=== PATIENT | female | born 1980 | race African-American/Black ===

== ENCOUNTER 2017-12-02 21:31 | Emergency (ER) | payer MEDICAID ==
[~2017-12-02] VITALS: Ht 160 cm; Wt 60.0 kg
[2017-12-02] MEDS ORDERED: ONDANSETRON 4MG ODT PO STA (22:54)
[2017-12-02] MEDS ORDERED: MAGNESIUM/ALUMINUM HYDROXIDE/SIMETHICONE 30ML UDC PO STA (22:54)
[2017-12-02 23:23] LABS: BASOPHILS % 0.6 % (0.0-2.0); EOSINOPHILS % 0.9 % (0.0-5.0); HEMATOCRIT. 32.7 % (36.0-48.0); HEMOGLOBIN. 11.3 g/dL (12.0-16.0); MEAN CORPUSCULAR HEMOGLOBIN 34.2 pg (28.0-32.0); MEAN CORPUSCULAR VOLUME 99.1 fL (81.0-99.0); MEAN PLATELET VOLUME 11.4 fl (7.4-10.4); MONOCYTES % 9.4 % (2.0-8.0); NEUTROPHILS % 65.1 % (40.0-76.0); PLATELET 125 x1000/uL (130-400); RED CELL DISTRIBUTION WIDTH 15.5 % (11.6-14.6)
[2017-12-02 23:28] LABS: CHLORIDE 101 mEq/L (98-107); INR 1.2; PROTHROMBIN TIME 12.1 sec (9.4-11.6)
[2017-12-02] MEDS ORDERED: SODIUM CHLORIDE 0.9% 1,000 ML IV ONE (23:31)
[2017-12-02] MEDS ORDERED: KETOROLAC 30MG/ML VIAL IV STA (23:31)
[2017-12-02 23:33] LABS: HCG SCREEN NEGATIVE
[2017-12-02 23:37] LABS: CLARITY URINE CLOUDY (CLEAR); COLOR URINE YELLOW (YELLOW); KETONES URINE TRACE (NEGATIVE); LEUKOCYTE ESTERASE URINE NEGATIVE (NEGATIVE); NITRITE URINE NEGATIVE (NEGATIVE); OCCULT BLOOD URINE 1+ (NEGATIVE); PH URINE 5.5 (4.5-8.0); PROTEIN URINE 2+ (NEGATIVE); SPECIFIC GRAVITY URINE 1.025 (1.005-1.030)
[2017-12-03] MEDS ORDERED: POTASSIUM CHLORIDE 20MEQ TABLET SR PO ONE
[2017-12-03 01:49] VITALS: BP 160/70
== END 2017-12-03 02:00 | disposition home or self-care (01) ==
LOC: ER 21:56
DX: R10.9 Unspecified abdominal pain (principal); F17.200 Nicotine dependence, unspecified, uncomplicated
CPT/HCPCS: 36415; 80053; 81003; 84703; 85025; 85610; 96361; 96374; 99285; J1885; J7030; Q0162

== ENCOUNTER 2018-03-29 07:35 | Emergency (ER) | payer MEDICAID ==
[~2018-03-29] VITALS: Ht 167.6 cm; Wt 65.0 kg
[2018-03-29] MEDS ORDERED: ONDANSETRON HCL 4MG/2ML VIAL IV STA (09:03)
[2018-03-29] MEDS ORDERED: KETOROLAC 30MG/ML VIAL IV STA (09:03)
[2018-03-29] MEDS ORDERED: SODIUM CHLORIDE 0.9% 1,000 ML IV ONE (09:03)
[2018-03-29 09:46] LABS: BASOPHILS % 0.5 % (0.0-2.0); EOSINOPHILS % 5.1 % (0.0-5.0); HEMATOCRIT. 36.2 % (36.0-48.0); LYMPHOCYTES % 42.2 % (20.0-50.0); MEAN CORPUSCULAR HEMOGLOBIN 33.3 pg (28.0-32.0); MEAN CORPUSCULAR VOLUME 100.8 fL (81.0-99.0); MEAN PLATELET VOLUME 12.2 fl (7.4-10.4); MONOCYTES % 5.4 % (2.0-8.0); NEUTROPHILS % 46.8 % (40.0-76.0); PLATELET 120 x1000/uL (130-400); RED BLOOD CELL COUNT 3.59 mill/uL (4.2-5.4); RED CELL DISTRIBUTION WIDTH 16.6 % (11.6-14.6)
[2018-03-29 09:55] LABS: CHLORIDE 107 mEq/L (98-107)
[2018-03-29 10:04] LABS: CLARITY URINE CLEAR (CLEAR); COLOR URINE YELLOW (YELLOW); KETONES URINE NEGATIVE (NEGATIVE); LEUKOCYTE ESTERASE URINE NEGATIVE (NEGATIVE); NITRITE URINE NEGATIVE (NEGATIVE); OCCULT BLOOD URINE NEGATIVE (NEGATIVE); PROTEIN URINE NEGATIVE (NEGATIVE); SPECIFIC GRAVITY URINE 1.014 (1.005-1.030); UROBILINOGEN URINE 0.2 E.U./dL (0.2-1.0)
[2018-03-29 10:21] LABS: *BARBITURATES SCREEN URINE NEGATIVE (NEGATIVE)
[2018-03-29 10:22] LABS: *COCAINE SCREEN URINE NEGATIVE (NEGATIVE); METHADONE URINE SCREEN NEGATIVE (NEGATIVE)
[2018-03-29 10:25] LABS: *BENZODIAZEPINES SCREEN URINE NEGATIVE (NEGATIVE); PHENCYCLIDINE URINE SCREEN NEGATIVE (NEGATIVE)
[2018-03-29 10:26] LABS: OPIATES URINE SCREEN NEGATIVE (NEGATIVE)
[2018-03-29 10:28] LABS: *AMPHETAMINES SCREEN URINE NEGATIVE (NEGATIVE)
[2018-03-29 10:32] LABS: CANNABINOID URINE SCREEN PRESUMTIVE POSITIVE (NEGATIVE)
[2018-03-29] MEDS ORDERED: LORAZEPAM 2MG/ML CPJ IV ONE (10:45)
[2018-03-29] MEDS ORDERED: ONDANSETRON HCL 4MG/2ML VIAL IV ONE (11:00)
[2018-03-29 12:31] VITALS: BP 140/75
== END 2018-03-29 12:40 | disposition home or self-care (01) ==
LOC: ER 07:35
DX: R10.84 Generalized abdominal pain (principal); R11.2 Nausea with vomiting, unspecified; M79.7 Fibromyalgia; I10 Essential (primary) hypertension; F12.10 Cannabis abuse, uncomplicated; Z88.2 Allergy status to sulfonamides
CPT/HCPCS: 36415; 80053; 80305; 81003; 81025; 83690; 85025; 96361; 96374; 96375; 96376; 99285; J1885; J2060; J2405; J7030

== ENCOUNTER 2018-03-29 13:53 | Emergency (ER) | payer MEDICAID ==
[~2018-03-29] VITALS: Ht 157.5 cm; Wt 62.0 kg
[2018-03-29 14:24] VITALS: BP 163/85
== END 2018-03-29 20:30 | disposition left against medical advice (07) ==
LOC: ER 13:53
DX: R10.84 Generalized abdominal pain (principal)
CPT/HCPCS: 99281

== ENCOUNTER 2018-03-30 00:34 | Emergency (ER) | payer MEDICAID ==
[~2018-03-30] VITALS: Ht 167.6 cm; Wt 73.0 kg
[2018-03-30] MEDS ORDERED: SODIUM CHLORIDE 0.9% 1,000 ML IV ONE (01:47)
[2018-03-30] MEDS ORDERED: ONDANSETRON HCL 4MG/2ML INJ IV STA (01:47)
[2018-03-30] MEDS ORDERED: FAMOTIDINE 20MG/2ML VIAL IV STA (01:47)
[2018-03-30] MEDS ORDERED: MORPHINE SULFATE 4 MG/ML CPJ (NOT FOR IM USE) IV STA (01:47)
[2018-03-30] MEDS ORDERED: BACITRACIN ZINC 15GM TUBE TOP ONE (02:15)
[2018-03-30 02:30] LABS: BASOPHILS % 0.4 % (0.0-2.0); HEMATOCRIT. 34.1 % (36.0-48.0); HEMOGLOBIN. 11.6 g/dL (12.0-16.0); LYMPHOCYTES % 20.8 % (20.0-50.0); MEAN CORPUSCULAR VOLUME 100.2 fL (81.0-99.0); MEAN PLATELET VOLUME 11.9 fl (7.4-10.4); MONOCYTES % 5.9 % (2.0-8.0); NEUTROPHILS % 71.9 % (40.0-76.0); PLATELET 136 x1000/uL (130-400); RED BLOOD CELL COUNT 3.41 mill/uL (4.2-5.4); RED CELL DISTRIBUTION WIDTH 15.8 % (11.6-14.6)
[2018-03-30 02:36] LABS: CHLORIDE 102 mEq/L (98-107); HCG SCREEN NEGATIVE
[2018-03-30 02:37] LABS: INR 1.1; PROTHROMBIN TIME 11.3 sec (9.1-11.1)
[2018-03-30 03:44] LABS: CLARITY URINE CLEAR (CLEAR); COLOR URINE YELLOW (YELLOW); KETONES URINE 1+ (NEGATIVE); LEUKOCYTE ESTERASE URINE NEGATIVE (NEGATIVE); NITRITE URINE NEGATIVE (NEGATIVE); OCCULT BLOOD URINE NEGATIVE (NEGATIVE); PH URINE 5.5 (4.5-8.0); PROTEIN URINE 1+ (NEGATIVE); SPECIFIC GRAVITY URINE 1.024 (1.005-1.030)
[2018-03-30 04:30] VITALS: BP 144/86
== END 2018-03-30 04:31 | disposition home or self-care (01) ==
LOC: ER 00:34
DX: R10.9 Unspecified abdominal pain (principal); R11.2 Nausea with vomiting, unspecified; R00.1 Bradycardia, unspecified; I10 Essential (primary) hypertension; Z88.2 Allergy status to sulfonamides
CPT/HCPCS: 36415; 74176; 80053; 81003; 81025; 83690; 84703; 85025; 85610; 93005; 96361; 96374; 96375; 99285; J2270; J2405; J3490; J7030; Z7610

== ENCOUNTER 2018-05-02 23:35 | Emergency (ER) | payer MEDICAID ==
[~2018-05-02] VITALS: Ht 157.5 cm; Wt 54.5 kg
[2018-05-03] MEDS: ONDANSETRON HCL 4MG/2ML INJ IV STA (01:10)
[2018-05-03] MEDS: VISCOUS LIDOCAINE 2% 15 ML UDC PO STA (01:10)
[2018-05-03] MEDS: MAGNESIUM/ALUMINUM HYDROXIDE/SIMETHICONE 30ML UDC PO STA (01:10)
[2018-05-03] MEDS: SODIUM CHLORIDE 0.9% 1,000 ML IV ONE ×2 (01:10→03:05)
[2018-05-03 01:17] LABS: CHLORIDE 99 mEq/L (98-107)
[2018-05-03 01:19] LABS: BASOPHILS % 0.9 % (0.0-2.0); EOSINOPHILS % 1.1 % (0.0-5.0); HEMATOCRIT. 34.7 % (36.0-48.0); HEMOGLOBIN. 11.7 g/dL (12.0-16.0); MEAN CORPUSCULAR HEMOGLOBIN 34.3 pg (28.0-32.0); MEAN CORPUSCULAR VOLUME 101.8 fL (81.0-99.0); MEAN PLATELET VOLUME 11.8 fl (7.4-10.4); MONOCYTES % 5.9 % (2.0-8.0); NEUTROPHILS % 70.1 % (40.0-76.0); PLATELET 134 x1000/uL (130-400); RED BLOOD CELL COUNT 3.41 mill/uL (4.2-5.4); RED CELL DISTRIBUTION WIDTH 16.1 % (11.6-14.6)
[2018-05-03] MEDS: HYDROCODONE/ACETAMINOPHEN 5/325MG TABLET PO STA (03:05)
[2018-05-03 03:10] LABS: CLARITY URINE CLEAR (CLEAR); COLOR URINE YELLOW (YELLOW); KETONES URINE 1+ (NEGATIVE); LEUKOCYTE ESTERASE URINE NEGATIVE (NEGATIVE); NITRITE URINE NEGATIVE (NEGATIVE); OCCULT BLOOD URINE NEGATIVE (NEGATIVE); PROTEIN URINE 1+ (NEGATIVE)
[2018-05-03 04:55] VITALS: BP 118/84
== END 2018-05-03 05:12 | disposition home or self-care (01) ==
LOC: ER 23:35
DX: R10.9 Unspecified abdominal pain (principal); R11.2 Nausea with vomiting, unspecified; R19.7 Diarrhea, unspecified
CPT/HCPCS: 36415; 80053; 81003; 83690; 85025; 96361; 96374; 99285; J2405; J7030

== ENCOUNTER 2019-03-30 19:53 | Emergency (ER) | payer MEDICARE, MEDICAID ==
[~2019-03-30] VITALS: Ht 165.1 cm; Wt 59.0 kg
[2019-03-30] MEDS ORDERED: KETOROLAC 30MG/ML VIAL IV STA (20:30)
[2019-03-30] MEDS ORDERED: MORPHINE SULFATE 4 MG/ML CPJ (NOT FOR IM USE) IV STA (20:31)
[2019-03-30] MEDS ORDERED: SODIUM CHLORIDE 0.9% 1,000 ML IV ONE (20:31)
[2019-03-30] MEDS ORDERED: ONDANSETRON HCL 4MG/2ML INJ IV STA (20:31)
[2019-03-30 21:41] LABS: HEMOGLOBIN. 10.7 g/dL (12.0-16.0); MEAN CORPUSCULAR HEMOGLOBIN 34.6 pg (28.0-32.0); MEAN CORPUSCULAR VOLUME 103.8 fL (81.0-99.0); MEAN PLATELET VOLUME 11.5 fl (7.4-10.4); PLATELET 152 x1000/uL (130-400); RED BLOOD CELL COUNT 3.09 mill/uL (4.2-5.4); RED CELL DISTRIBUTION WIDTH 14.5 % (11.6-14.6)
[2019-03-30 21:42] LABS: CHLORIDE 108 mEq/L (98-107)
[2019-03-30 21:55] LABS: HCG SCREEN NEGATIVE
[2019-03-30 22:37] LABS: PLATELET ESTIMATE NORMAL
[2019-03-30 22:47] LABS: CLARITY URINE CLEAR (CLEAR); COLOR URINE YELLOW (YELLOW); KETONES URINE 1+ (NEGATIVE); LEUKOCYTE ESTERASE URINE 1+ (NEGATIVE); NITRITE URINE NEGATIVE (NEGATIVE); OCCULT BLOOD URINE 2+ (NEGATIVE); PROTEIN URINE 1+ (NEGATIVE); SPECIFIC GRAVITY URINE 1.023 (1.005-1.030)
[2019-03-31] MEDS ORDERED: CEFTRIAXONE 1 G PREMIX 50 ML IV ONE (01:00)
[2019-03-31 02:00] VITALS: BP 136/72
== END 2019-03-31 02:38 | disposition home or self-care (01) ==
LOC: ER 19:53
DX: R10.30 Lower abdominal pain, unspecified (principal); N39.0 Urinary tract infection, site not specified; I10 Essential (primary) hypertension; J45.909 Unspecified asthma, uncomplicated; F99 Mental disorder, not otherwise specified; Z88.2 Allergy status to sulfonamides; Z98.890 Other specified postprocedural states; Z59.0 Homelessness
CPT/HCPCS: 36415; 74176; 80053; 81003; 83690; 84703; 85025; 96361; 96365; 96375; 99284; J0696; J1885; J2270; J2405; J7030

== ENCOUNTER 2019-06-12 07:36 | Emergency (ER) | payer MEDICARE, MEDICAID ==
[~2019-06-12] VITALS: Ht 167.6 cm; Wt 59.0 kg
[2019-06-12] MEDS ORDERED: SODIUM CHLORIDE 0.9% 1,000 ML IV ONE (09:15)
[2019-06-12] MEDS ORDERED: MAGNESIUM/ALUMINUM HYDROXIDE/SIMETHICONE 30ML UDC PO STA (09:19)
[2019-06-12] MEDS ORDERED: VISCOUS LIDOCAINE 2% 15 ML UDC PO STA (09:19)
[2019-06-12] MEDS ORDERED: ONDANSETRON HCL 4MG/2ML INJ IV ONE (09:30)
[2019-06-12 09:44] LABS: BASOPHILS % 0.9 % (0.0-2.0); EOSINOPHILS % 2.5 % (0.0-5.0); HEMATOCRIT. 38.9 % (36.0-48.0); HEMOGLOBIN. 12.9 g/dL (12.0-16.0); LYMPHOCYTES % 37.7 % (20.0-50.0); MEAN CORPUSCULAR HEMOGLOBIN 34.6 pg (28.0-32.0); MEAN CORPUSCULAR VOLUME 104.5 fL (81.0-99.0); MEAN PLATELET VOLUME 11.3 fl (7.4-10.4); MONOCYTES % 5.9 % (2.0-8.0); PLATELET 130 x1000/uL (130-400); RED BLOOD CELL COUNT 3.72 mill/uL (4.2-5.4)
[2019-06-12 09:46] LABS: CHLORIDE 108 mEq/L (98-107)
[2019-06-12 09:49] LABS: INR 1.1
[2019-06-12 09:50] LABS: HCG SCREEN NEGATIVE
[2019-06-12 09:54] LABS: CLARITY URINE CLEAR (CLEAR); COLOR URINE YELLOW (YELLOW); KETONES URINE TRACE (NEGATIVE); LEUKOCYTE ESTERASE URINE NEGATIVE (NEGATIVE); NITRITE URINE NEGATIVE (NEGATIVE); OCCULT BLOOD URINE NEGATIVE (NEGATIVE); PH URINE 7.5 (4.5-8.0); PROTEIN URINE TRACE (NEGATIVE); SPECIFIC GRAVITY URINE 1.018 (1.005-1.030)
[2019-06-12] MEDS ORDERED: MORPHINE SULFATE 4 MG/ML CPJ (NOT FOR IM USE) IV ONE (11:00)
[2019-06-12 14:28] VITALS: BP 139/83
== END 2019-06-12 14:50 | disposition short-term general hospital (02) ==
LOC: ER 07:36
DX: R10.9 Unspecified abdominal pain (principal); K52.9 Noninfective gastroenteritis and colitis, unspecified; F31.9 Bipolar disorder, unspecified; F17.200 Nicotine dependence, unspecified, uncomplicated; Z88.2 Allergy status to sulfonamides; Z87.11 Personal history of peptic ulcer disease
CPT/HCPCS: 36415; 71045; 80053; 81003; 81025; 83690; 84703; 85025; 85610; 93005; 96361; 96374; 96375; 99285; J2270; J2405; J7030

== ENCOUNTER 2019-08-26 12:35 | Emergency (ER) | payer MEDICARE, MEDICAID ==
[~2019-08-26] VITALS: Ht 162.6 cm; Wt 59.0 kg
[2019-08-26] MEDS ORDERED: MORPHINE SULFATE 4 MG/ML CPJ (NOT FOR IM USE) IV STA (13:00)
[2019-08-26] MEDS ORDERED: ONDANSETRON HCL 4MG/2ML INJ IV STA (13:00)
[2019-08-26] MEDS ORDERED: FAMOTIDINE 20MG/2ML VIAL IV STA (13:00)
[2019-08-26] MEDS ORDERED: SODIUM CHLORIDE 0.9% 1,000 ML IV ONE (13:00)
[2019-08-26 13:26] LABS: BASOPHILS % 0.9 % (0.0-2.0); EOSINOPHILS % 0.9 % (0.0-5.0); HEMATOCRIT. 36.7 % (36.0-48.0); HEMOGLOBIN. 12.4 g/dL (12.0-16.0); MEAN CORPUSCULAR HEMOGLOBIN 35.6 pg (28.0-32.0); MEAN CORPUSCULAR VOLUME 105.3 fL (81.0-99.0); MEAN PLATELET VOLUME 11.6 fl (7.4-10.4); MONOCYTES % 3.8 % (2.0-8.0); NEUTROPHILS % 82.4 % (40.0-76.0); PLATELET 146 x1000/uL (130-400); RED BLOOD CELL COUNT 3.48 mill/uL (4.2-5.4)
[2019-08-26] MEDS: VISCOUS LIDOCAINE 2% 15 ML UDC PO STA ×2 (13:30→13:32)
[2019-08-26] MEDS: MAGNESIUM/ALUMINUM HYDROXIDE/SIMETHICONE 30ML UDC PO STA ×2 (13:30→13:32)
[2019-08-26 13:35] LABS: CHLORIDE 106 mEq/L (98-107)
[2019-08-26 15:00] LABS: INR 1.1; PROTHROMBIN TIME 11.1 sec (9.6-11.0)
[2019-08-26 15:39] LABS: CLARITY URINE CLEAR (CLEAR); COLOR URINE YELLOW (YELLOW); KETONES URINE 1+ (NEGATIVE); LEUKOCYTE ESTERASE URINE NEGATIVE (NEGATIVE); NITRITE URINE NEGATIVE (NEGATIVE); OCCULT BLOOD URINE NEGATIVE (NEGATIVE); PROTEIN URINE 1+ (NEGATIVE); SPECIFIC GRAVITY URINE 1.025 (1.005-1.030); UROBILINOGEN URINE 0.2 E.U./dL (0.2-1.0)
[2019-08-26 18:26] VITALS: BP 133/74
== END 2019-08-26 18:30 | disposition home or self-care (01) ==
LOC: ER 12:35
DX: R10.9 Unspecified abdominal pain (principal); J45.909 Unspecified asthma, uncomplicated; E11.9 Type 2 diabetes mellitus without complications; F12.10 Cannabis abuse, uncomplicated
CPT/HCPCS: 36415; 80053; 81003; 83690; 85025; 85610; 96361; 96374; 96375; 99283; J2270; J2405; J3490; J7030

== ENCOUNTER 2019-10-11 08:16 | Emergency (ER) | payer MEDICARE, MEDICAID ==
[~2019-10-11] VITALS: Ht 157.5 cm; Wt 63.0 kg
[2019-10-11] MEDS ORDERED: MORPHINE SULFATE 4 MG/ML CPJ (NOT FOR IM USE) IV STA (09:40)
[2019-10-11] MEDS ORDERED: ONDANSETRON 4MG ODT PO STA (09:40)
[2019-10-11 09:54] LABS: BASOPHILS % 0.9 % (0.0-2.0); EOSINOPHILS % 1.7 % (0.0-5.0); HEMATOCRIT. 32.2 % (36.0-48.0); HEMOGLOBIN. 10.9 g/dL (12.0-16.0); LYMPHOCYTES % 20.1 % (20.0-50.0); MEAN CORPUSCULAR HEMOGLOBIN 35.4 pg (28.0-32.0); MEAN CORPUSCULAR VOLUME 104.1 fL (81.0-99.0); MEAN PLATELET VOLUME 12.3 fl (7.4-10.4); MONOCYTES % 4.2 % (2.0-8.0); NEUTROPHILS % 73.1 % (40.0-76.0); PLATELET 142 x1000/uL (130-400); RED BLOOD CELL COUNT 3.09 mill/uL (4.2-5.4); RED CELL DISTRIBUTION WIDTH 14.5 % (11.6-14.6)
[2019-10-11 10:02] LABS: CHLORIDE 113 mEq/L (98-107); INR 1.1; PROTHROMBIN TIME 11.6 sec (9.6-11.0)
[2019-10-11 11:16] LABS: CLARITY URINE CLEAR (CLEAR); COLOR URINE YELLOW (YELLOW); KETONES URINE 1+ (NEGATIVE); LEUKOCYTE ESTERASE URINE NEGATIVE (NEGATIVE); NITRITE URINE NEGATIVE (NEGATIVE); OCCULT BLOOD URINE 2+ (NEGATIVE); PROTEIN URINE NEGATIVE (NEGATIVE); SPECIFIC GRAVITY URINE 1.018 (1.005-1.030); UROBILINOGEN URINE 0.2 E.U./dL (0.2-1.0)
[2019-10-11] MEDS ORDERED: VISCOUS LIDOCAINE 2% 15 ML UDC PO STA (11:20)
[2019-10-11] MEDS ORDERED: MAGNESIUM/ALUMINUM HYDROXIDE/SIMETHICONE 30ML UDC PO STA (11:20)
[2019-10-11 11:23] LABS: HCG SCREEN NEGATIVE
[2019-10-11 12:40] VITALS: BP 135/74
== END 2019-10-11 13:43 | disposition home or self-care (01) ==
LOC: ER 08:16
DX: K29.70 Gastritis, unspecified, without bleeding (principal); K52.89 Other specified noninfective gastroenteritis and colitis; J45.909 Unspecified asthma, uncomplicated; F31.9 Bipolar disorder, unspecified; I10 Essential (primary) hypertension; Z87.11 Personal history of peptic ulcer disease; Z88.2 Allergy status to sulfonamides
CPT/HCPCS: 36415; 71045; 74176; 80053; 81003; 81025; 83690; 84703; 85025; 85610; 93005; 96374; 99285; J2270; Q0162

== ENCOUNTER 2019-10-11 14:46 | Emergency (ER) | payer MEDICARE, MEDICAID ==
[~2019-10-11] VITALS: Ht 154.9 cm; Wt 70.0 kg
[2019-10-11] MEDS ORDERED: KETOROLAC 60MG/2ML VIAL IM ONE (16:00)
[2019-10-11 16:21] VITALS: BP 115/69
== END 2019-10-11 16:24 | disposition home or self-care (01) ==
LOC: ER 14:58
DX: R10.9 Unspecified abdominal pain (principal); G89.29 Other chronic pain; K21.9 Gastro-esophageal reflux disease without esophagitis; Z88.2 Allergy status to sulfonamides; Z87.11 Personal history of peptic ulcer disease
CPT/HCPCS: 96372; 99283; J1885

== ENCOUNTER 2020-01-13 08:34 | Inpatient (IN) | payer MEDICARE, MEDICAID ==
[~2020-01-13] VITALS: Ht 152.4 cm; Wt 54.9 kg
[2020-01-13] MEDS: HEPARIN 5000 UNITS/ML VIAL SUBCUT SCH (00:04)
[2020-01-13] MEDS ORDERED: SODIUM CHLORIDE 0.9% 1,000 ML IV ONE (09:13)
[2020-01-13] MEDS ORDERED: METOCLOPRAMIDE HCL 10MG/2ML VIAL IV STA (09:13)
[2020-01-13] MEDS ORDERED: MORPHINE SULFATE 4 MG/ML CPJ (NOT FOR IM USE) IV STA (09:13)
[2020-01-13] MEDS ORDERED: HALOPERIDOL LACTATE 5MG/ML VIAL IM ONE (09:15)
[2020-01-13 09:34] LABS: BASOPHILS % 1.4 % (0.0-2.0); EOSINOPHILS % 2.6 % (0.0-5.0); HEMATOCRIT. 34.8 % (36.0-48.0); LYMPHOCYTES % 22.4 % (20.0-50.0); MEAN CORPUSCULAR HEMOGLOBIN 35.4 pg (28.0-32.0); MEAN CORPUSCULAR VOLUME 102.9 fL (81.0-99.0); MEAN PLATELET VOLUME 11.9 fl (7.4-10.4); MONOCYTES % 4.5 % (2.0-8.0); NEUTROPHILS % 69.1 % (40.0-76.0); PLATELET 146 x1000/uL (130-400); RED BLOOD CELL COUNT 3.38 mill/uL (4.2-5.4); RED CELL DISTRIBUTION WIDTH 15.7 % (11.6-14.6)
[2020-01-13 09:40] LABS: CHLORIDE 112 mEq/L (98-107)
[2020-01-13 09:43] LABS: ETHANOL BLOOD < 10 mg/dL
[2020-01-13 09:51] LABS: B-HCG QUANTITATIVE < 1 mIU/mL (<3)
[2020-01-13 12:50] LABS: CLARITY URINE TURBID (CLEAR); COLOR URINE RED (YELLOW); KETONES URINE TRACE (NEGATIVE); LEUKOCYTE ESTERASE URINE 1+ (NEGATIVE); NITRITE URINE NEGATIVE (NEGATIVE); OCCULT BLOOD URINE 3+ (NEGATIVE); PH URINE 8.5 (4.5-8.0); PROTEIN URINE 2+ (NEGATIVE); SPECIFIC GRAVITY URINE 1.013 (1.005-1.030); UROBILINOGEN URINE 0.2 E.U./dL (0.2-1.0)
[2020-01-13] MEDS ORDERED: CEFTRIAXONE 1 G PREMIX 50 ML IV SCH (13:00)
[2020-01-13] MEDS ORDERED: IOHEXOL-300 100 ML BOTTLE ONE (13:08)
[2020-01-13 13:12] LABS: *AMPHETAMINES SCREEN URINE NEGATIVE (NEGATIVE); *BARBITURATES SCREEN URINE NEGATIVE (NEGATIVE)
[2020-01-13 13:13] LABS: *BENZODIAZEPINES SCREEN URINE NEGATIVE (NEGATIVE); *COCAINE SCREEN URINE NEGATIVE (NEGATIVE); METHADONE URINE SCREEN NEGATIVE (NEGATIVE); PHENCYCLIDINE URINE SCREEN NEGATIVE (NEGATIVE)
[2020-01-13 13:14] LABS: CANNABINOID URINE SCREEN PRESUMTIVE POSITIVE (NEGATIVE); OPIATES URINE SCREEN PRESUMTIVE POSITIVE (NEGATIVE)
[2020-01-13] MEDS ORDERED: ACETAMINOPHEN 325MG TABLET PO PRN (16:30)
[2020-01-13] MEDS: ONDANSETRON HCL 4MG/2ML INJ IV PRN (19:22)
[2020-01-13] MEDS: MORPHINE SULFATE 2 MG/ML CPJ (NOT FOR IM USE) IV PRN (19:25)
[2020-01-14] VITALS: BP 165/83
[2020-01-14] MEDS: KETOROLAC 30MG/ML VIAL IV PRN ×3 (00:09→22:48)
[2020-01-14] MEDS: TRAZODONE HCL 50MG TABLET PO PRN ×2 (00:34→20:31)
[2020-01-14] MEDS: HALOPERIDOL LACTATE 5MG/ML VIAL IM PRN ×2 (01:32→23:11)
[2020-01-14 04:00] VITALS: BP 178/81
[2020-01-14] MEDS: MORPHINE SULFATE 2 MG/ML CPJ (NOT FOR IM USE) IV PRN ×2 (04:53→11:09)
[2020-01-14] MEDS: DEXT 5%/0.45% NACL 1000ML 1,000 ML IV SCH ×2 (05:54→20:22)
[2020-01-14 08:00] VITALS: BP 132/77
[2020-01-14 08:45] LABS: BASOPHILS % 0.4 % (0.0-2.0); EOSINOPHILS % 0.1 % (0.0-5.0); HEMOGLOBIN. 11.3 g/dL (12.0-16.0); LYMPHOCYTES % 18.2 % (20.0-50.0); MEAN CORPUSCULAR HEMOGLOBIN 33.7 pg (28.0-32.0); MEAN CORPUSCULAR VOLUME 101.6 fL (81.0-99.0); MEAN PLATELET VOLUME 11.7 fl (7.4-10.4); MONOCYTES % 6.7 % (2.0-8.0); NEUTROPHILS % 74.6 % (40.0-76.0); PLATELET 130 x1000/uL (130-400); RED BLOOD CELL COUNT 3.34 mill/uL (4.2-5.4); RED CELL DISTRIBUTION WIDTH 15.5 % (11.6-14.6)
[2020-01-14] MEDS: RISPERIDONE 1MG TABLET PO SCH ×2 (08:47→20:22)
[2020-01-14 08:52] LABS: CHLORIDE 104 mEq/L (98-107)
[2020-01-14] MEDS: HEPARIN 5000 UNITS/ML VIAL SUBCUT SCH ×2 (09:48→20:22)
[2020-01-14 12:00] VITALS: BP 186/87
[2020-01-14] MEDS ORDERED: POTASSIUM CHLORIDE 20MEQ/PACKET PO SCH (13:00)
[2020-01-14 16:00] VITALS: BP 169/86
[2020-01-14] MEDS: SUCRALFATE 1 G/10 ML UDC PO SCH ×3 (17:20→20:21)
[2020-01-14] MEDS: PANTOPRAZOLE 40MG DR TABLET PO SCH (17:32)
[2020-01-14 20:00] VITALS: BP 169/95
[2020-01-14] MEDS: ONDANSETRON HCL 4MG/2ML INJ IV PRN (23:25)
[2020-01-15] VITALS: BP 167/55
[2020-01-15] MEDS: MORPHINE SULFATE 2 MG/ML CPJ (NOT FOR IM USE) IV PRN (01:08)
[2020-01-15] MEDS ORDERED: CLONIDINE 0.1MG TABLET PO PRN (04:45)
[2020-01-15] MEDS: PANTOPRAZOLE 40MG DR TABLET PO SCH (06:54)
[2020-01-15] MEDS: SUCRALFATE 1 G/10 ML UDC PO SCH (06:54)
[2020-01-15 06:58] LABS: BASOPHILS % 0.4 % (0.0-2.0); HEMATOCRIT. 33.8 % (36.0-48.0); HEMOGLOBIN. 11.6 g/dL (12.0-16.0); LYMPHOCYTES % 15.4 % (20.0-50.0); MEAN CORPUSCULAR HEMOGLOBIN 34.7 pg (28.0-32.0); MEAN CORPUSCULAR VOLUME 101.3 fL (81.0-99.0); MEAN PLATELET VOLUME 12.1 fl (7.4-10.4); MONOCYTES % 4.4 % (2.0-8.0); NEUTROPHILS % 79.8 % (40.0-76.0); PLATELET 126 x1000/uL (130-400); RED BLOOD CELL COUNT 3.34 mill/uL (4.2-5.4); RED CELL DISTRIBUTION WIDTH 15.8 % (11.6-14.6)
[2020-01-15 07:09] LABS: CHLORIDE 103 mEq/L (98-107)
[2020-01-15 08:00] VITALS: BP 121/69
== END 2020-01-15 10:30 | disposition left against medical advice (07) | DRG 918 ==
LOC: ER 08:34 → MICUSO 16:09 → EDBEDREQ 16:24 → 6WST 23:05
PROVIDERS: ADMIT Internal Medicine; ATTEND Internal Medicine
DX: T40.7X1A Poisoning by cannabis (derivatives), accidental (unintentional), initial encounter (principal); N39.0 Urinary tract infection, site not specified; D61.818 Other pancytopenia; I31.3 Pericardial effusion (noninflammatory); R11.2 Nausea with vomiting, unspecified; S09.90XA Unspecified injury of head, initial encounter; D25.9 Leiomyoma of uterus, unspecified; D50.9 Iron deficiency anemia, unspecified; E87.6 Hypokalemia; I11.9 Hypertensive heart disease without heart failure; K76.89 Other specified diseases of liver; Z53.29 Procedure and treatment not carried out because of patient's decision for other reasons; R10.9 Unspecified abdominal pain; W18.2XXA Fall in (into) shower or empty bathtub, initial encounter; Y92.091 Bathroom in other non-institutional residence as the place of occurrence of the external cause; Y99.8 Other external cause status; Y93.E1 Activity, personal bathing and showering; Z79.899 Other long term (current) drug therapy; Z88.2 Allergy status to sulfonamides; F12.188 Cannabis abuse with other cannabis-induced disorder
CPT/HCPCS: 36415; 71045; 74177; 80053; 80305; 80320; 81003; 82962; 83735; 84484; 84702; 85025; 93005; 99285; J0696; J1630; J1644; J1885; J2270; J2405; J2765; J7030; Q9967; G0480

== ENCOUNTER 2020-04-21 04:17 | Emergency (ER) | payer MEDICARE, MEDICAID ==
[~2020-04-21] VITALS: Ht 162.6 cm; Wt 54.0 kg
[2020-04-21] MEDS ORDERED: IBUPROFEN 600MG TABLET PO ONE (06:30)
[2020-04-21 08:01] VITALS: BP 159/83
== END 2020-04-21 08:02 | disposition home or self-care (01) ==
LOC: ER 04:17
DX: S80.02XA Contusion of left knee, initial encounter (principal); V98.8XXA Other specified transport accidents, initial encounter; Y93.89 Activity, other specified; Y92.410 Unspecified street and highway as the place of occurrence of the external cause
CPT/HCPCS: 29505; 73562; 99283

== ENCOUNTER 2020-11-03 03:31 | Emergency (ER) | payer MEDICARE, MEDICAID ==
[~2020-11-03] VITALS: Ht 152.4 cm; Wt 50.0 kg
[2020-11-03] MEDS ORDERED: DOXY100T28 MT (03:57)
[2020-11-03] MEDS ORDERED: IBUP-2029 PO (03:57)
[2020-11-03] MEDS ORDERED: BO1 TP (03:57)
[2020-11-03] MEDS ORDERED: AMOX-494 MT (03:57)
[2020-11-03] MEDS ORDERED: IBUPROFEN 600MG TABLET PO NR (04:00)
[2020-11-03 04:39] VITALS: BP 124/85
== END 2020-11-03 04:40 | disposition home or self-care (01) ==
LOC: ER 03:31
DX: J34.0 Abscess, furuncle and carbuncle of nose (principal); Z88.2 Allergy status to sulfonamides
CPT/HCPCS: 99283

== ENCOUNTER 2020-11-10 15:11 | Emergency (ER) | payer MEDICARE, MEDICAID ==
[~2020-11-10] VITALS: Ht 165.1 cm; Wt 70.0 kg
[~2020-11-10 15:11] MED LIST: AMOX-494 MT; BO1 TP; DOXY100T28 MT; IBUP-2029 PO
[2020-11-10 15:25] VITALS: BP 119/72
[2020-11-10] MEDS ORDERED: BO1 TP (18:19)
[2020-11-10] MEDS ORDERED: BACITRACIN 15GM TUBE TOP ONE (18:30)
[2020-11-10] MEDS ORDERED: DIPHENHYDRAMINE 25MG CAPSULE PO ONE (18:30)
== END 2020-11-10 18:41 | disposition home or self-care (01) ==
LOC: ER 15:11
DX: S00.511A Abrasion of lip, initial encounter (principal); L29.9 Pruritus, unspecified; F14.10 Cocaine abuse, uncomplicated; F12.10 Cannabis abuse, uncomplicated; Z88.2 Allergy status to sulfonamides; X58.XXXA Exposure to other specified factors, initial encounter; Y93.89 Activity, other specified; Y92.018 Other place in single-family (private) house as the place of occurrence of the external cause
CPT/HCPCS: 99282

== ENCOUNTER 2021-03-15 06:36 | Emergency (ER) | payer MEDICARE, MEDICAID ==
[~2021-03-15] VITALS: Ht 154.9 cm; Wt 57.0 kg
[2021-03-15 07:20] VITALS: BP 137/95
[2021-03-15] MEDS ORDERED: ERYT1OIN6 EACHEYE (07:49)
== END 2021-03-15 08:15 | disposition home or self-care (01) ==
LOC: ER 06:36
DX: H10.31 Unspecified acute conjunctivitis, right eye (principal); F11.10 Opioid abuse, uncomplicated; Z88.2 Allergy status to sulfonamides; Z79.899 Other long term (current) drug therapy
CPT/HCPCS: 99283

== ENCOUNTER 2021-10-31 11:44 | Emergency (ER) | payer MEDICARE, MEDICAID ==
[~2021-10-31] VITALS: Ht 167.6 cm; Wt 64.0 kg
[~2021-10-31 11:44] MED LIST changes: +ERYT1OIN6 EACHEYE
[2021-10-31 11:45] VITALS: BP 129/86
[2021-10-31] MEDS ORDERED: FLUORESCEIN SODIUM 1MG/STRIP LEFTEYE ONE (12:00)
[2021-10-31] MEDS ORDERED: ERYT1OIN6 LEFTEYE (13:54)
== END 2021-10-31 15:43 | disposition home or self-care (01) ==
LOC: ER 11:44
DX: H16.002 Unspecified corneal ulcer, left eye (principal); F11.10 Opioid abuse, uncomplicated; H54.61 Unqualified visual loss, right eye, normal vision left eye; Z88.2 Allergy status to sulfonamides
CPT/HCPCS: 81025; 99284

== ENCOUNTER 2022-03-23 01:58 | Emergency (ER) | payer MEDICARE, MEDICAID ==
[~2022-03-23] VITALS: Ht 160 cm; Wt 54.0 kg
[~2022-03-23 01:58] MED LIST changes: -ERYT1OIN6 EACHEYE; +ERYT1OIN6 LEFTEYE
[2022-03-23] MEDS ORDERED: ACETAMINOPHEN 325MG TABLET PO STA (05:44)
[2022-03-23 06:12] LABS: BASOPHILS % 0.7 % (0.0-2.0); EOSINOPHILS % 1.9 % (0.0-5.0); HEMATOCRIT. 31.3 % (36.0-48.0); HEMOGLOBIN. 10.4 g/dL (12.0-16.0); LYMPHOCYTES % 11.5 % (20.0-50.0); MEAN CORPUSCULAR HEMOGLOBIN 30.5 pg (28.0-32.0); MEAN CORPUSCULAR VOLUME 92.1 fL (81.0-99.0); MEAN PLATELET VOLUME 10.4 fl (7.4-10.4); MONOCYTES % 8.4 % (2.0-8.0); NEUTROPHILS % 77.5 % (40.0-76.0); PLATELET 247 x1000/uL (130-400); RED CELL DISTRIBUTION WIDTH 16.2 % (11.6-14.6)
[2022-03-23 06:18] LABS: CHLORIDE 101 mEq/L (98-107)
[2022-03-23 06:25] LABS: ETHANOL BLOOD < 10 mg/dL
[2022-03-23] MEDS ORDERED: SULF1TAB48 PO (06:41)
[2022-03-23] MEDS ORDERED: CEPH500C2 PO (06:41)
[2022-03-23] MEDS ORDERED: TOPUD PO (06:42)
[2022-03-23 08:04] LABS: *BARBITURATES SCREEN URINE NEGATIVE (NEGATIVE); *BENZODIAZEPINES SCREEN URINE NEGATIVE (NEGATIVE); *COCAINE SCREEN URINE NEGATIVE (NEGATIVE); METHADONE URINE SCREEN NEGATIVE (NEGATIVE); OPIATES URINE SCREEN NEGATIVE (NEGATIVE); PHENCYCLIDINE URINE SCREEN NEGATIVE (NEGATIVE)
[2022-03-23 08:13] LABS: *AMPHETAMINES SCREEN URINE PRESUMTIVE POSITIVE (NEGATIVE); CANNABINOID URINE SCREEN PRESUMTIVE POSITIVE (NEGATIVE)
[2022-03-23 08:30] VITALS: BP 115/82
== END 2022-03-23 08:51 | disposition home or self-care (01) ==
LOC: ER 01:58
DX: L03.011 Cellulitis of right finger (principal); F15.10 Other stimulant abuse, uncomplicated; F16.10 Hallucinogen abuse, uncomplicated; F12.10 Cannabis abuse, uncomplicated; M79.18 Myalgia, other site; R21 Rash and other nonspecific skin eruption; D64.9 Anemia, unspecified; H54.7 Unspecified visual loss; Z59.02 Unsheltered homelessness
CPT/HCPCS: 36415; 80053; 80305; 80320; 85025; 99283; G0480